=== PATIENT | male | born 1950 | race African-American/Black ===

== ENCOUNTER 2017-08-06 13:35 | Outpatient (CLI) | payer OTHER ==
[~2017-08-06] VITALS: Ht 188 cm; Wt 107.5 kg
[2017-08-06] MEDS ORDERED: AMLODIPINE BESYL5 MG ORAL (14:22)
[2017-08-06] MEDS ORDERED: LISINOPRIL10 MG ORAL (14:22)
[2017-08-06] MEDS ORDERED: ATORVASTATIN CA20 MG ORAL (14:22)
[2017-08-06] MEDS ORDERED: TERAZOSIN HCL1 MG ORAL (14:22)
[2017-08-06] MEDS ORDERED: SPIRONOLACTONE100 MG ORAL (14:22)
--- NOTE | 2017-08-06 14:31 | GI Initial Consult Note ---
AnnetteKayleigh Guy N.PCecilia 08/06/17 1431: History of Present Illness General Date patient seen: Aug 06, 2017 Time patient seen: 14:17 Referring physician: LEILA FISCHER Reason for Consultation: SCREENING COLON Present Illness HPI 67 year old male patient referred by Dr. Fischer for routine colonoscopy screening. Last colonoscopy performed in 2012 with findings of tubulovillous adenoma. Patient presents today with no GI symptoms. Denies any weight loss or changes in dietary habits. Home Meds Reported Medications Atorvastatin Calcium* (ATORVASTATIN CALCIUM*) 20 Mg Tablet, 5 MG ORAL BEDTIME, TAB 08/06/17 Terazosin Hcl* (HYTRIN*) 1 Mg Capsule, 1 MG ORAL BEDTIME, #7 CAP 0 Refills 08/06/17 Amlodipine Besylate* (AMLODIPINE BESYLATE*) 5 Mg Tablet, 5 MG ORAL DAILY, TAB 08/06/17 Lisinopril* (LISINOPRIL*) 10 Mg Tablet, 10 MG ORAL DAILY, TAB 08/06/17 Spironolactone* (SPIRONOLACTONE*) 100 Mg Tablet, 50 MG ORAL DAILY, TAB 08/06/17 Med list reviewed/reconciled: Yes Allergies: Coded Allergies: No Known Allergies (Unverified , 08/06/17) Patient History History Provided By: Patient PMH Narrative HTN BPH Elevated cholesterol PSHx Lt knee arthroscopy Pertinent Family History: diabetes - both Father/Mother Social History: Reports: alcohol use - rare, other - coffee Review of Systems All Other Systems: negative except mentioned in HPI Physical Exam T 97.4 BP 114/71 P 70 97 RA HT 6'2 WT 237 lbs Sp02 EP Interpretation: reviewed General Appearance: well appearing, no apparent distress Head: normocephalic EENT: normal ENT inspection Neck: full range of motion, supple Respiratory: normal breath sounds Cardiovascular: normal peripheral pulses, normal rate Gastrointestinal: normal inspection, non tender, soft, normal bowel sounds Rectal: deferred Genitourinary: normal inspection Musculoskeletal: normal inspection, back normal, digits/nails normal Psychiatric: normal inspection, judgement/insight normal, memory normal Skin: normal inspection, normal color, no rash Lymphatic: normal inspection, no adenopathy GI: Plan Problems: (1) Tubulovillous adenoma of colon (2) Colonoscopy planned (3) HTN (hypertension) (4) BPH (benign prostatic hyperplasia) (5) Elevated cholesterol Plan s/p colonoscopy 2012 colonoscopy to be scheduled pending prior authorization - CLD and prep instructions given and acknowledged by patient. Seen with Dr. Liz. Thank you for referring this patient. WOO LIZ 08/08/17 0915: History of Present Illness Present Illness Home Meds Reported Medications Atorvastatin Calcium* (ATORVASTATIN CALCIUM*) 20 Mg Tablet, 5 MG ORAL BEDTIME, TAB 08/06/17 Terazosin Hcl* (HYTRIN*) 1 Mg Capsule, 1 MG ORAL BEDTIME, #7 CAP 0 Refills 08/06/17 Amlodipine Besylate* (AMLODIPINE BESYLATE*) 5 Mg Tablet, 5 MG ORAL DAILY, TAB 08/06/17 Lisinopril* (LISINOPRIL*) 10 Mg Tablet, 10 MG ORAL DAILY, TAB 08/06/17 Spironolactone* (SPIRONOLACTONE*) 100 Mg Tablet, 50 MG ORAL DAILY, TAB 08/06/17 Allergies: Coded Allergies: No Known Allergies (Unverified , 08/06/17) GI: Plan Plan The patient was seen and examined at bedside and all new and available data was reviewed in the patients chart. I agree with the above findings, impression and plan. (Patient seen earlier today. Signature stamp does not reflect patient encounter time.). - MD Annette MendezDign[facility] Guy N.PCecilia Aug 06, 2017 14:31 WOO LIZ Aug 08, 2017 09:15
[2017-08-06 15:07] VITALS: BP 114/71
[2017-09-02] MEDS ORDERED: PROSCAR5 MG ORAL (12:05)
[2017-09-02] MEDS ORDERED: TAMSULOSIN HCL0.4 MG ORAL (12:05)
== END 2017-08-06 14:15 | disposition home or self-care (01) ==
LOC: PAN 13:35
DX: D12.6 Benign neoplasm of colon, unspecified (principal); I10 Essential (primary) hypertension; N40.0 Benign prostatic hyperplasia without lower urinary tract symptoms; E78.00 Pure hypercholesterolemia, unspecified; Z83.3 Family history of diabetes mellitus
CPT/HCPCS: 99201

== ENCOUNTER 2017-09-03 06:54 | Day surgery (SDC) | payer OTHER ==
[~2017-09-03] VITALS: Ht 188 cm; Wt 106.6 kg
[2017-09-03] VITALS (10 sets, daily range): BP systolic 136–171; BP diastolic 71–92
[~2017-09-03 06:54] MED LIST: AMLODIPINE BESYL5 MG ORAL; ATORVASTATIN CA20 MG ORAL; LISINOPRIL10 MG ORAL; PROSCAR5 MG ORAL; SPIRONOLACTONE100 MG ORAL; TAMSULOSIN HCL0.4 MG ORAL; TERAZOSIN HCL1 MG ORAL
[2017-09-03] MEDS ORDERED: LR 1000ml ONE (08:56)
[2017-09-03] MEDS ORDERED: Propofol 200mg/20ml IV ONE (08:56)
[2017-09-03] MEDS ORDERED: Midazolam 2mg/2ml Inj ONE (08:56)
[2017-09-03] MEDS ORDERED: fentaNYL 100 mcg/2 mL IV ONE (08:56)
--- NOTE | 2017-09-03 08:58 | Pre-Procedure Note/Attestation ---
Pre-Procedure Note/Attestation Complete Prior to Procedure Planned Procedure: not applicable Procedure Narrative: colonoscopy Indications for Procedure Pre-Operative Diagnosis: screening Attestation I attest that I discussed the nature of the procedure; its benefits; risks and complications; and alternatives (and the risks and benefits of such alternatives ), prior to the procedure, with the patient (or the patient's legal traveling sales representative). I attest that, if there was a reasonable possibility of needing a blood transfusion, the patient (or the patient's legal traveling sales representative) was given the [facility] standardized written summary, pursuant to the Nils Guadalupe Guerra Blood Safety Act ([place] Health and Safety Code # 1645, as amended). I attest that I re-evaluated the patient just prior to the surgery and that there has been no change in the patient's H&P, except as documented below: WOO LIZ Sep 03, 2017 08:58
--- NOTE | 2017-09-03 08:59 | Short Stay Surgery H&P ---
History of Present Illness History of Present Illness Chief Complaint screening colon see recent full consult HPI Bijan Douglas Person is a 67 year old male who was admitted on for History Of Colon Polyps Patient History Allergies: Coded Allergies: No Known Allergies (Unverified , 08/06/17) PAST MEDICAL HISTORY: Past Surgeries: Social History: Medication History Scheduled Amlodipine Besylate* (Amlodipine Besylate*), 5 MG ORAL DAILY, (Reported) Atorvastatin Calcium* (Atorvastatin Calcium*), 5 MG ORAL BEDTIME, (Reported) Finasteride* (Proscar*), 5 MG ORAL DAILY, (Reported) Lisinopril* (Lisinopril*), 10 MG ORAL DAILY, (Reported) Spironolactone* (Spironolactone*), 50 MG ORAL DAILY, (Reported) Tamsulosin Hcl (Tamsulosin Hcl*), 0.4 MG ORAL BEDTIME, (Reported) Discontinued Medications Terazosin Hcl* (Hytrin*), 1 MG ORAL BEDTIME, (Reported) Discontinued Reason: Pt stopped taking med Physical Exam Vital Signs Last Vital Signs Date Time Temp Pulse Resp B/P (MAP) Pulse Ox O2 Delivery O2 Flow Rate FiO2 09/03/17 07:43 97.9 66 20 151/84 99 Room Air Plan Attestation Are the patient's medical conditions optimized for surgery? OWO LIZ Sep 03, 2017 08:59
[2017-09-03] MEDS ORDERED: LR 1000ml 1,000 ML IVLG SCH (09:05)
--- NOTE | 2017-09-03 09:05 | Anethesia Preoperative Eval ---
Anesthesia Pre-op PMH/ROS General Date of Evaluation: Sep 03, 2017 Time of Evaluation: 08:54 Anesthesiologist: Prudence ASA Score: ASA 2 Mallampati Score Class I : Soft palate, uvula, fauces, pillars visible Class II: Soft palate, uvula, fauces visible Class III: Soft palate, base of uvula visible Class IV: Only hard plate visible Mallampati Classification: Class II Surgeon: Prudence Diagnosis: H/o polyps Surgical Procedure: Colonoscopy Anesthesia History: none Family History: no anesthesia problems Allergies: Coded Allergies: No Known Allergies (Unverified , 08/06/17) Medications: see eMAR Past Medical History Cardiovascular: Reports: HTN, Denies: CAD, LA, valve dz, arrhythmia, other Pulmonary: Denies: asthma, COPD, NESTOR, other Gastrointestinal/Genitourinary: Reports: GERD, other - BPH, Denies: CRI, ESRD Neurologic/Psychiatric: Denies: dementia, CVA, depression/anxiety, TIA, other Endocrine: Denies: DM, hypothyroidism, steroids, other HEENT: Denies: cataract (L), cataract (R), glaucoma, CHEHALIS (L), CHEHALIS (R), other Hematology/Immune: Denies: anemia, DVT, bleeding disorder, other Musculoskeletal/Integumentary: Reports: DJD, Denies: OA, RA, DDD, edema, other Other: other - overweight PMH Narrative: as above PSxH Narrative: Colonoscopy, knee Sx Anesthesia Pre-op Phys. Exam Physician Exam Last Vital Signs Date Time Temp Pulse Resp B/P (MAP) Pulse Ox O2 Delivery O2 Flow Rate FiO2 09/03/17 07:43 97.9 66 20 151/84 99 Room Air Constitutional: NAD Neurologic: CN 2-12 intact Cardiovascular: RRR, no M/R/G Respiratory: CTA Gastrointestinal: S/NT/ND Airway Exam Mallampati Score: Class II MO: full Neck: flexible ROM: limited Teeth: intact Dentures: no upper, no lower Anesthesia Pre-op A/P Studies Pre-op Studies: EKG - NSR Risk Assessment & Plan Assessment: ASA 2 Plan: MAC Status Change Before Surgery: No Pre-Antibiotics Drug: None PAVEL SOUSA M.D. Sep 03, 2017 09:05
[2017-09-03] MEDS ORDERED: DiphenhydrAMINE 50mg/ml Inj IVP PRN (09:15)
[2017-09-03] MEDS ORDERED: fentaNYL 100 mcg/2 mL IV PRN (09:15)
--- NOTE | 2017-09-03 09:16 | Endoscopy Procedure Note ---
Endoscopy Procedure Note Indication for Procedure: screening Procedures Performed: colonoscopy Operative Findings/Diagnosis: large polyp Specimen: yes Pt Tolerated Procedure Well: Yes Estimated Blood Loss: none Anesthesiologist: mary Anesthesia: MAC Implant(s) used?: No 50 yrs or older w/o bx or poly: No 10yrs. F/U not recommended: Yes If not recommended, why?: Above average risk 10 yrs. F/U needed: Yes 18 years or older w/prev. colo: Yes <3yrs. since last colonoscopy: No WOO LIZ Sep 03, 2017 09:16
--- NOTE | 2017-09-03 09:28 | Immediate Post-Op Evaluation ---
Immediate Post-Op Evalulation Immediate Post-Op Evalulation Procedure: Colonoscopy Polypectomy Date of Evaluation: Sep 03, 2017 Time of Evaluation: 09:27 IV Fluids: 500 Blood Products: none Estimated Blood Loss: none Urinary Output: none Blood Pressure Systolic: 128 Blood Pressure Diastolic: 74 Pulse Rate: 69 Respiratory Rate: 20 O2 Sat by Pulse Oximetry: 99 Temperature (Fahrenheit): 97.6 Pain Score (1-10): 1 Nausea: No Vomiting: No Complications none Patient Status: awake, patent, none Hydration Status: adequate PAVEL SOUSA M.D. Sep 03, 2017 09:28
--- NOTE | 2017-09-03 12:28 | 48 Hour Post Anesthesia Eval ---
Post Anesthesia Evaluation Procedure: Colonoscopy Polypectomy Date of Evaluation: Sep 03, 2017 Time of Evaluation: 10:50 Blood Pressure Systolic: 136 0: 74 Pulse Rate: 72 Respiratory Rate: 20 Temperature (Fahrenheit): 97.6 O2 Sat by Pulse Oximetry: 98 Airway: patent Nausea: No Vomiting: No Pain Intensity: 1 Hydration Status: adequate Cardiopulmonary Status: stable Mental Status/LOC: patient returned to baseline Follow-up Care/Observations: n/a Post-Anesthesia Complications: none Follow-up care needed: ready to discharge PAVEL SOUSA M.D. Sep 03, 2017 12:28
--- NOTE | 2017-09-03 15:30 | Procedure Note ---
DATE OF PROCEDURE: 09/03/2017 PROCEDURE: Colonoscopy with snare polypectomy. SURGEON: Mikhail Zaragoza M.D. ANESTHESIA: Per Dr. Foss. INSTRUMENT: Olympus adult flexible colonoscope. INDICATION: History of colonic polyps. The procedure, risks, benefits, and possible consequences, including hemorrhage, aspiration, perforation and infection, and alternative treatments, were explained to the patient/legal guardian by Dr. Mikhail Zaragoza and the patient/legal guardian understood and accepted these risks. DESCRIPTION OF PROCEDURES: After informed consent was obtained and the patient was adequately sedated, Olympus colonoscope was advanced from the rectum into the cecum documented by appendiceal orifice, ileocecal valve, and right upper quadrant palpation. Quality of prep was very good. The patient had 1 area of the tattoo in the proximal ascending colon. Across from the tattoo, there was a large sessile polyp measured roughly about 1.5 to 1.7 cm in size. This polyp was removed in a piecemeal fashion with snare polypectomy technique in 3 parts. All 3 were retrieved and sent to the pathologist. The rest of the exam was grossly within normal limits. No obvious other polyps were seen. Retroflexion of rectum showed evidence of internal hemorrhoids. SUMMARY OF FINDINGS: 1. About 1.5 to 1.7 cm sessile polyp in the proximal ascending colon, status post snare polypectomy in a piecemeal fashion in 3 parts. 2. Internal hemorrhoids. RECOMMENDATIONS: 1. Follow up biopsy results. 2. We will recommend repeat colonoscopy in one year. Given the large polyp requiring piecemeal fashion removal. I want to thank Dr. Salvatore Vasquez for this kind referral. Mikhail Zaragoza M.D. DR: BLADE JOB#: [id number] CC: Salvatore Vasquez M.D.; Fax#: [phone]
--- NOTE | 2017-09-14 16:30 | Cardiology Report ---
APPROVED REPORT EKG Measurement Heart [id number] Normal sinus rhythm Normal ECG
== END 2017-09-03 10:20 | disposition home or self-care (01) ==
LOC: GAS 06:54
DX: K63.5 Polyp of colon (principal); K64.8 Other hemorrhoids; D12.2 Benign neoplasm of ascending colon; I10 Essential (primary) hypertension; K21.9 Gastro-esophageal reflux disease without esophagitis; M19.90 Unspecified osteoarthritis, unspecified site; E66.3 Overweight; Z68.30 Body mass index [BMI] 30.0-30.9, adult
CPT/HCPCS: 45380; 93005; J2250; J2704; J3010; J7120; 94003; 94150

== ENCOUNTER 2018-10-22 13:06 | Outpatient (CLI) | payer OTHER ==
[2018-10-22 13:19] VITALS: BP 142/79
--- NOTE | 2018-10-22 14:00 | GI Progress Note ---
Assessment/Plan Problems: (1) Colonic polyp ICD Codes: K63.5 - Polyp of colon SNOMED: 12330672 (2) Elevated cholesterol ICD Codes: E78.00 - Pure hypercholesterolemia, unspecified SNOMED: 30977925 (3) HTN (hypertension) ICD Codes: I10 - Essential (primary) hypertension SNOMED: 60233675 Status: stable Status Narrative Seen with Dr. Zaragoza. Assessment/Plan Colonoscopy performed in August 2017. SUMMARY OF FINDINGS reviewed with patient: 1. About 1.5 to 1.7 cm sessile polyp in the proximal ascending colon, status post snare polypectomy in a piecemeal fashion in 3 parts. 2. Internal hemorrhoids. RECOMMENDATIONS: 1. Follow up biopsy results. >> Tubular adenoma 2. Repeat colonoscopy in 2 years RTC PRN The patient was seen and examined at bedside and all new and available data was reviewed in the patients chart. I agree with the above findings, impression and plan. (Patient seen earlier today. Signature stamp does not reflect patient encounter time.). - Mikhail Zaragoza MD Subjective Gastrointestinal/Abdominal: Reports: no symptoms Subjective Denies any abdominal pain nausea vomiting or diarrhea. States he is here for his repeat colonoscopy Objective Last 24 Hour Vital Signs Date Time Temp Pulse Resp B/P (MAP) Pulse Ox O2 Delivery O2 Flow Rate FiO2 10/22/18 13:19 98.2 72 142/79 97 General Appearance: WD/WN, no apparent distress, alert Cardiovascular: normal rate Respiratory/Chest: normal breath sounds, no respiratory distress Abdominal Exam: normal bowel sounds, non tender, soft Extremities: normal range of motion, non-tender Sheri Bryant ARGON TESTER Oct 22, 2018 14:00
== END 2018-10-22 13:36 | disposition home or self-care (01) ==
LOC: PAN 13:06
DX: K63.5 Polyp of colon (principal); E78.00 Pure hypercholesterolemia, unspecified; I10 Essential (primary) hypertension; K64.8 Other hemorrhoids
CPT/HCPCS: 99212